=== PATIENT | male | born 1975 | race Caucasian/White ===

== ENCOUNTER 2016-07-17 22:26 | Emergency (ER) | payer OTHER | END 2016-07-17 23:49 | disposition home or self-care (01) | LOC: FER 22:26 | DX: J06.9 Acute upper respiratory infection, unspecified (principal); I25.2 Old myocardial infarction; I10 Essential (primary) hypertension; F17.210 Nicotine dependence, cigarettes, uncomplicated; Z79.82 Long term (current) use of aspirin; Z79.899 Other long term (current) drug therapy; Z95.5 Presence of coronary angioplasty implant and graft | CPT/HCPCS: 87804; 87899; 99283 ==

== ENCOUNTER 2021-06-06 18:46 | Emergency (ER) | payer SELFPAY ==
[~2021-06-06 18:46] MED LIST: FLONASE ALLER15.8 ML; GLUCOTROL10 MG PO; METFORMIN HCL500 MG PO; PLAVIX75 MG PO; PRINIVIL20 MG PO; TESSALON PERLE100 M1 PO; ZOCOR40 MG PO
[2021-06-06 20:23] LABS: BASOPHIL 0.9 % (0-2); EOSINOPHIL 2.1 % (0-5); HCT 42.4 % (42.0-52.0); HGB 14.8 g/dl (13.2-18.0); LYMPHOCYTE 8.4 % (15-48); MCH 30.6 pg (25.0-31.0); MCHC 34.9 g/dL (32.0-36.0); MCV 87.8 fL (78.0-100.0); MONOCYTE 11.8 % (0-12); MPV 10.1 fL (6.0-9.5); NEUTROPHIL 76.6 % (41-80); NRBC 0; PLT 236 K/uL (150-400); RBC 4.83 M/uL (4.70-6.00); RDW 12.2 % (11.5-14.0); WBC 5.6 K/uL (4.0-10.5)
[2021-06-06 20:48] LABS: BUN/CREAT RATIO (CALC) 14.3 RATIO; CREATININE 0.7 mg/dL (0.67-1.17); POTASSIUM 3.9 mmol/L (3.5-5.1)
[2021-06-06 20:50] LABS: INFLUENZA A NAA NEGATIVE (NEGATIVE)
[2021-06-06 20:59] LABS: CORONAVIRUS 2019 SARS-COV-2 POSITIVE (NEGATIVE)
[2021-06-06] MEDS ORDERED: MEDROL 4MG DOSEP4 MG PO (21:32)
== END 2021-06-06 22:03 | disposition home or self-care (01) ==
LOC: FER 18:46
PROVIDERS: Nurse Practitioner Family
DX: U07.1 COVID-19 (principal); I10 Essential (primary) hypertension; J44.9 Chronic obstructive pulmonary disease, unspecified; E11.40 Type 2 diabetes mellitus with diabetic neuropathy, unspecified; F17.210 Nicotine dependence, cigarettes, uncomplicated
CPT/HCPCS: 36415; 71045; 80048; 84484; 85025; 85379; 93005; J7030; U0002